=== PATIENT | female | born 1945 | race Caucasian/White ===

== ENCOUNTER → 2024-08-09 | Outpatient (REF) | payer MEDICARE ==
[~2024-08-09] MED LIST: ASPIRIN CHEW81 MG PO; CELEXA20 MG PO; LEVOXYL50 MCG PO; PEPCID20 MG PO; PLAVIX75 MG PO; PRAVACHOL40 MG PO; TENORMIN100 MG PO; ULTRAM 50MG50 MG PO
== END ==
LOC: US 09:07
PROVIDERS: ATTEND Nurse Practitioner Primary Care
DX: R10.11 Right upper quadrant pain (principal)
CPT/HCPCS: 76700